=== PATIENT | male | born 1990 | race Caucasian/White ===

== ENCOUNTER 2017-02-25 03:21 | Emergency (ER) | payer MEDICAID ==
[~2017-02-25] VITALS: Ht 177.8 cm; Wt 60.0 kg
[2017-02-25] MEDS ORDERED: IBUPROFEN 200 MG TABLET ONE (04:17)
[2017-02-25] MEDS ORDERED: IBUPROFEN 200 MG TABLET PO ONE (04:30)
[2017-02-25 04:39] VITALS: BP 113/64
== END 2017-02-25 04:41 | disposition home or self-care (01) ==
LOC: ED 03:35
DX: H65.01 Acute serous otitis media, right ear (principal); H66.002 Acute suppurative otitis media without spontaneous rupture of ear drum, left ear; J02.8 Acute pharyngitis due to other specified organisms; F11.23 Opioid dependence with withdrawal; Z90.89 Acquired absence of other organs
CPT/HCPCS: 99283

== ENCOUNTER 2017-05-19 02:09 | Emergency (ER) | payer MEDICAID | END 2017-05-19 04:56 | disposition home or self-care (01) | LOC: ED 02:09 | DX: Z53.21 Procedure and treatment not carried out due to patient leaving prior to being seen by health care provider (principal) | CPT/HCPCS: 87491; 87591 ==

== ENCOUNTER 2017-05-19 02:09 | Emergency (ER) | payer MEDICAID ==
[2017-05-19] MEDS ORDERED: CEFTRIAXONE 250 MG ONE (02:47)
[2017-05-19] MEDS ORDERED: AZITHROMYCIN 250 MG TABLET ONE (02:48)
== END 2017-05-19 03:06 ==
LOC: ED 03:05
DX: N34.1 Nonspecific urethritis (principal)
CPT/HCPCS: 99281

== ENCOUNTER 2017-10-29 07:19 | Emergency (ER) | payer SELFPAY ==
[~2017-10-29] VITALS: Ht 172.7 cm; Wt 72.8 kg
[2017-10-29] MEDS ORDERED: methylPREDNISolone SOD SUCC 125 MG/2 ML ONE (07:46)
[2017-10-29] MEDS ORDERED: KETOROLAC 30 MG/1 ML ONE (07:46)
[2017-10-29] MEDS ORDERED: methylPREDNISolone SOD SUCC 125 MG/2 ML IVP ONE (08:00)
[2017-10-29] MEDS ORDERED: KETOROLAC 30 MG/1 ML IVPush ONE (08:00)
[2017-10-29] MEDS ORDERED: ALBUTEROL/IPRATROPIUM 2.5MG/0.5MG, 3 ML NPPB ONE (08:00)
[2017-10-29] MEDS ORDERED: SODIUM CHLORIDE FLUSH 10ML SYR IVF ONE (08:00)
[2017-10-29] MEDS ORDERED: ALBUTEROL/IPRATROPIUM 2.5MG/0.5MG, 3 ML ONE (08:09)
[2017-10-29 08:10] LABS: BASOPHILS # (AUTO) 0.06 x10^3/uL (0-0.1); BASOPHILS % (AUTO) 0 % (0-1); EOSINOPHILS # (AUTO) 0.41 x10^3/uL (0-0.4); EOSINOPHILS % (AUTO) 3 % (1-7); LYMPHOCYTES # (AUTO) 1.48 x10^3/uL (1-3.4); LYMPHOCYTES % (AUTO) 12 % (22-44); MD NO; MEAN CORPUSCULAR HEMOGLOBIN 29.4 pg (27.5-34.5); MEAN CORPUSCULAR HGB CONC 33.9 g/dL (33.2-36.2); MEAN CORPUSCULAR VOLUME 86.7 fL (81-97); MEAN PLATELET VOLUME 8.6 fL (7.4-10.4); MONOCYTES # (AUTO) 1.39 x10^3/uL (0.2-0.8); MONOCYTES % (AUTO) 11 % (2-9); NEUTROPHILS # (AUTO) 9.49 x10^3/uL (1.8-6.8); NEUTROPHILS % (AUTO) 74 % (42-75); PLATELET COUNT 233 x10^3/uL (130-400); RED BLOOD COUNT 5.37 x10^6/uL (4.38-5.82); RED CELL DISTRIBUTION WIDTH 13.7 % (9.4-14.8)
[2017-10-29 08:23] LABS: ALBUMIN 3.3 g/dL (3.4-5.0); ANION GAP 7 mmol/L (5-15); CALCIUM 8.3 mg/dL (8.5-10.1); CHLORIDE 99 mmol/L (98-107); CREATININE 0.86 mg/dL (0.7-1.3)
[2017-10-29 08:26] LABS: TROPONIN I < 0.015 ng/mL (0.000-0.045)
[2017-10-29 08:46] VITALS: BP 106/46
== END 2017-10-29 10:10 | disposition home or self-care (01) ==
LOC: ED 09:07
DX: J15.9 Unspecified bacterial pneumonia (principal); F17.200 Nicotine dependence, unspecified, uncomplicated
CPT/HCPCS: 36415; 71045; 80048; 82040; 83605; 83880; 84484; 85025; 87040; 93005; 94640; 96374; 96375; 99285; J1885; J2930; J7620

== ENCOUNTER 2020-09-09 15:42 | Emergency (ER) | payer MEDICAID ==
[~2020-09-09] VITALS: Ht 175.3 cm; Wt 79.2 kg
[2020-09-09 16:25] LABS: BASOPHILS % (AUTO) 0 % (0-1); EOSINOPHILS % (AUTO) 1 % (1-7); LYMPHOCYTES % (AUTO) 35 % (22-44); MEAN CORPUSCULAR HEMOGLOBIN 29.9 pg (27.5-34.5); MEAN CORPUSCULAR HGB CONC 34.3 g/dL (33.2-36.2); MEAN PLATELET VOLUME 8.1 fL (7.4-10.4); MONOCYTES % (AUTO) 9 % (2-9); NEUTROPHILS % (AUTO) 54 % (42-75); PLATELET COUNT 315 x10^3/uL (130-400); RED BLOOD COUNT 5.23 x10^6/uL (4.38-5.82); RED CELL DISTRIBUTION WIDTH 14.9 % (9.4-14.8)
[2020-09-09 16:28] LABS: ALANINE AMINOTRANSFERASE 23 U/L (12-78); ALBUMIN 4.2 g/dL (3.4-5.0); ANION GAP 3 mmol/L (5-15); CALCIUM 8.9 mg/dL (8.5-10.1); CHLORIDE 108 mmol/L (98-107); CREATININE 0.81 mg/dL (0.7-1.3); MD NO
[2020-09-09 16:30] LABS: ALKALINE PHOSPHATASE 170 U/L (45-117); BILIRUBIN,TOTAL 0.4 mg/dL (0.2-1.0); TOTAL PROTEIN 8.1 g/dL (6.4-8.2)
[2020-09-09] MEDS ORDERED: ONDANSETRON 2MG/ML, 2ML IVPush ONE (20:30)
[2020-09-09] MEDS ORDERED: MORPHINE SULFATE 4 MG/ML, 1ML IVPush PRN (20:30)
--- NOTE | 2020-09-09 20:35 | NUR ---
CT DELAY- PT NEED IV.
[2020-09-09] MEDS ORDERED: ONDANSETRON 2MG/ML, 2ML ONE (20:42)
[2020-09-09] MEDS ORDERED: MORPHINE SULFATE 4 MG/ML, 1ML ONE (20:43)
--- NOTE | 2020-09-09 21:18 | NUR ---
UNABLE TO USE IV FOR CT. SENT PT BACK TO GET NEW IV.
[2020-09-09 21:22] LABS: TROPONIN I < 0.015 ng/mL (0.000-0.045)
[2020-09-09] MEDS ORDERED: OMNIPAQUE 350 MG/ML, 100ML BOTTLE ONE (22:35)
[2020-09-09] MEDS ORDERED: KETOROLAC 30 MG/1 ML ONE (23:23)
[2020-09-09 23:29] VITALS: BP 120/57
[2020-09-09] MEDS ORDERED: KETOROLAC 30 MG/1 ML IV ONE (23:30)
== END 2020-09-10 00:06 | disposition home or self-care (01) ==
LOC: ED 20:15
DX: S20.212A Contusion of left front wall of thorax, initial encounter (principal); S30.1XXA Contusion of abdominal wall, initial encounter; R94.31 Abnormal electrocardiogram [ECG] [EKG]; V86.99XA Unspecified occupant of other special all-terrain or other off-road motor vehicle injured in nontraffic accident, initial encounter; Y93.89 Activity, other specified; Y92.89 Other specified places as the place of occurrence of the external cause; Y99.8 Other external cause status
CPT/HCPCS: 36415; 71260; 74177; 80053; 84484; 85025; 93005; 96374; 96375; 99285; J1885; J2270; J2405; Q9967